=== PATIENT | male | born 1960 | race Caucasian/White ===

== ENCOUNTER 2021-06-17 08:51 | Emergency (ER) | payer BC ==
[2021-06-17] MEDS: Sodium Chloride 0.9% 10 ML Syringe FLUSH PRN (09:05)
[2021-06-17] MEDS: Nitroglycerin 0.4 MG Tab.SL SL PRN (09:21)
[2021-06-17 09:38] LABS: ANION GAP 13.9 mmol/L (5-15); CHLORIDE,CL 103 mmol/L (98-107); SODIUM,NA 140 mmol/L (136-145)
[2021-06-17] MEDS: Nitroglycerin 0.4 MG Tab.SL ONE (09:47)
--- NOTE | 2021-06-17 09:48 | EDM.PDOC ---
ED HPI GENERAL MEDICAL PROBLEM - General Chief Complaint: Chest Pain Stated Complaint: CHEST PAIN Time Seen by Provider: 06/17/21 09:26 Source of Information: Reports: Patient, Significant Other History Limitations: Reports: No Limitations - History of Present Illness INITIAL COMMENTS - FREE TEXT/NARRATIVE: Patient presents with retrosternal chest pain that started at 0730 this morning after he'd gotten up and made a cup of coffee; was sitting drinking it when it started. Mild left arm pain but no pain in neck or jaw. Symptoms are similar to pain he had with an GA about 10 years ago but with milder left arm pain today. He was found to have a plugged stent. He'd had stents placed prior to that. Treatments LIVING MANAGER: Reports: Aspirin, Nitroglycerin, Other Medication(s) Other Treatments LIVING MANAGER: tums Mid-Sternal Chest Pain Score (Numeric/FACES): 5 - Related Data Allergies Allergy/AdvReac Type Severity Reaction Status Date / Time Penicillins Allergy Cannot Verified 06/17/21 09:24 Remember Home Meds: Home Meds Aspirin [Aspirin EC] 162 mg PO DAILY 06/17/21 [History] Fluticasone Propionate [Flonase] 1 spray NASBOTH DAILY 06/17/21 [History] Ibuprofen [Advil] 600 - 800 mg PO ASDIRECTED PRN 06/17/21 [History] Metoprolol Succinate 50 mg PO DAILY 06/17/21 [History] Nitroglycerin 0.4 mg SL ASDIRECTED PRN 06/17/21 [History] Rosuvastatin Calcium 40 mg PO DAILY 06/17/21 [History] ED ROS GENERAL - Review of Systems Review Of Systems: Comprehensive ROS is negative, except as noted in HPI. ED EXAM, GENERAL - Physical Exam Exam: See Below Exam Limited By: No Limitations General Appearance: Alert, WD/WN, No Apparent Distress Eye Exam: Bilateral Eye: EOMI, Normal Inspection, PERRL Ears: Normal External Exam, Hearing Grossly Normal Nose: Normal Inspection, No Blood Throat/Mouth: Normal Inspection, Normal Lips, Normal Voice, No Airway Compromise Head: Atraumatic, Normocephalic Neck: Normal Inspection, Full Range of Motion Respiratory/Chest: No Respiratory Distress, Lungs Clear, Normal Breath Sounds Cardiovascular: Normal Peripheral Pulses, Regular Rate, Rhythm, No Murmur GI/Abdominal: Normal Bowel Sounds, Soft, Non-Tender, No Organomegaly Back Exam: Normal Inspection, Full Range of Motion Extremities: Normal Inspection, Normal Range of Motion Neurological: Alert, Oriented, Normal Cognition, No Motor/Sensory Deficits Psychiatric: Normal Affect, Normal Mood Skin Exam: Warm, Dry, Intact, Normal Color, No Rash Course - Vital Signs Last Recorded V/S: Last Vital Signs Temp 97.5 F 06/17/21 09:13 Pulse 81 06/17/21 10:08 Resp 21 H 06/17/21 09:13 BP 162/94 H 06/17/21 10:08 Pulse Ox 96 06/17/21 09:13 - Orders/Labs/Meds Orders: Active Orders 24 hr Category Date Time Status Cardiac Monitoring [RC] STAT Care 06/17/21 09:45 Ordered Peripheral IV Care [RC] . DIRECTED Care 06/17/21 09:18 Active PTT,PARTIAL THROMBOPLSTIN TIME [COAG] Stat Lab 06/17/21 09:59 Ordered Heparin Sodium/D5W 250 ml Med 06/17/21 10:00 Active IV TITRATE Nitroglycerin 25 MG in D5W @ 10 MCG/MIN (250ml) Premix Med 06/17/21 10:15 Ordered Nitroglycerin/D5W [Nitroglycerin 50 MG/D5W 250 ML] 50 mg in 250 ml IV TITRATE Nitroglycerin [Nitrostat] Med 06/17/21 09:18 Active 0.4 mg SL Q5M PRN Sodium Chloride 0.9% [Saline Flush] Med 06/17/21 09:17 Active 10 ml FLUSH Q8HR PRN Peripheral IV Insertion Adult [OM.PC] Routine Oth 06/17/21 09:17 Ordered EKG 12 Lead [EK] Stat Ther 06/17/21 09:17 Ordered Medication Orders Heparin Sodium/Dextrose () 250 mls @ 14.696 mls/hr IV TITRATE VANESSA; Protocol Last Admin: 06/17/21 09:55 Dose: 12 units/kg/hr, 14.696 mls/hr Documented by: ESTEFANIA Cosigned by: SHERRY Nitroglycerin/Dextrose (Nitroglycerin 50 Mg/D5w 250 Ml) 50 mg in 250 mls @ 3 mls/hr IV TITRATE VANESSA Last Admin: 06/17/21 10:16 Dose: 10 mcg/min, 3 mls/hr Documented by: ESTEFANIA Nitroglycerin (Nitroglycerin 0.4 Mg Tab.Sl) 0.4 mg SL Q5M PRN PRN Reason: Chest Pain Last Admin: 06/17/21 09:21 Dose: 0.4 mg Documented by: ESTEFANIA Sodium Chloride (Sodium Chloride 0.9% 10 Ml Syringe) 10 ml FLUSH Q8HR PRN PRN Reason: keep vein open Last Admin: 06/17/21 09:05 Dose: 10 ml Documented by: ESTEFANIA Labs: Laboratory Tests 06/17/21 06/17/21 Range/Units 09:05 09:05 WBC 9.65 (5.00-10.00) 10^3/uL RBC 5.24 (4.50-6.00) 10^6/uL Hgb 14.0 (13.0-17.0) g/dL Hct 42.7 (40.0-52.0) % MCV 81.5 L (82.0-92.0) fL MCH 26.7 L (27.0-31.0) pg MCHC 32.8 (32.0-36.0) g/dL RDW 14.0 (11.5-14.5) % Plt Count 236 (150-400) 10^3/uL MPV 10.1 (7.4-10.4) fL Immature Gran % (Auto) 0.3 (0.0-5.0) % Neut % (Auto) 74.6 H (50.0-70.0) % Lymph % (Auto) 13.3 L (20.0-40.0) % Morrison % (Auto) 9.1 H (2.0-8.0) % Eos % (Auto) 2.4 (1.0-3.0) % Baso % (Auto) 0.3 (0.0-1.0) % Neut # (Auto) 7.20 H (2.50-7.00) 10^3/uL Lymph # (Auto) 1.28 (1.00-4.00) 10^3/uL Morrison # (Auto) 0.88 H (0.10-0.80) 10^3/uL Eos # (Auto) 0.23 (0.10-0.30) 10^3/uL Baso # (Auto) 0.03 (0.00-0.10) 10^3/uL Immature Gran # (Auto) 0.03 (0.00-0.50) 10^3/uL Sodium 140 (136-145) mmol/L Potassium 4.0 (3.5-5.1) mmol/L Chloride 103 (98-107) mmol/L Carbon Dioxide 27.1 (21.0-32.0) mmol/L Anion Gap 13.9 (5-15) mmol/L BUN 16 (7-18) mg/dL Creatinine 0.90 (0.51-1.17) mg/dL Est Cr Clr Drug Dosing 90.12 mL/min Estimated GFR (MDRD) > 60 mL/min Glucose 127 (70-140) mg/dL Calcium 8.3 L (8.7-10.3) mg/dL Total Bilirubin 0.4 (0.2-1.0) mg/dL AST 30 (15-37) U/L ALT 29 (14-63) U/L Alkaline Phosphatase 81 (46-116) U/L Troponin I High Sens 870.700 H* (0-76.000) pg/mL Total Protein 7.1 (6.4-8.2) g/dL Albumin 2.80 L (3.40-5.00) g/dL Meds: Medications Generic Name Dose Route Start Last Admin Trade Name Freq PRN Reason Stop Dose Admin Heparin Sodium/Dextrose 250 mls @ 14.696 mls/hr 06/17/21 10:00 06/17/21 09:55 IV 12 units/kg/hr TITRATE VANESSA 14.696 mls/hr Administration Protocol 12 UNITS/KG/HR Nitroglycerin/Dextrose 50 mg in 250 mls @ 3 mls/hr 06/17/21 10:15 06/17/21 10:16 Nitroglycerin 50 Mg/D5w 250 Ml IV 10 mcg/min TITRATE VANESSA 3 mls/hr Administration 10 MCG/MIN Nitroglycerin 0.4 mg 06/17/21 09:18 06/17/21 09:21 Nitroglycerin 0.4 Mg Tab.Sl SL 0.4 mg Q5M PRN Administration Chest Pain Sodium Chloride 10 ml 06/17/21 09:17 06/17/21 09:05 Sodium Chloride 0.9% 10 Ml Syringe FLUSH 10 ml Q8HR PRN Administration keep vein open Discontinued Medications Generic Name Dose Route Start Last Admin Trade Name Alvaro PRN Reason Stop Dose Admin Clopidogrel Bisulfate 300 mg 06/17/21 09:59 06/17/21 10:08 Clopidogrel 75 Mg Tab PO 06/17/21 10:00 300 mg ONETIME ONE Administration Heparin Sodium (Porcine) 4,000 units 06/17/21 09:45 06/17/21 09:53 Heparin Sodium 5,000 Units/Ml Vial IVPUSH 06/17/21 09:46 4,000 units BOLUS ONE Administration Protocol Heparin Sodium (Porcine) Confirm 06/17/21 09:46 06/17/21 09:50 Heparin Sodium 5,000 Units/Ml Vial Administered 06/17/21 09:47 Not Given Dose 5,000 units .ROUTE .STK-MED ONE Heparin Sodium/Dextrose Confirm 06/17/21 09:46 06/17/21 09:50 Administered 06/17/21 09:47 Not Given Dose 250 mls @ as directed .ROUTE .STK-MED ONE Sodium Chloride Confirm 06/17/21 10:15 06/17/21 10:20 Normal Saline Administered 06/17/21 10:16 Not Given Dose 500 mls @ as directed .ROUTE .STK-MED ONE Metoprolol Tartrate 12.5 mg 06/17/21 10:02 06/17/21 10:08 Metoprolol Tartrate 25 Mg Tab PO 06/17/21 10:03 12.5 mg ONETIME ONE Administration Nitroglycerin Confirm 06/17/21 09:20 06/17/21 09:47 Nitroglycerin 0.4 Mg Tab.Sl Administered 06/17/21 09:21 Not Given Dose 0.4 mg .ROUTE .STK-MED ONE - Re-Assessments/Exams Free Text/Narrative Re-Assessment/Exam: 06/17/21 10:11 Chest pain on arrival was 8-9/10 and after our nitro has been around 5/10. Patient's knuckle strap sewer is in [facility]. CXR shows ST elevations in V1,V2 and depressions in II, III. The elevations are 1.5 mm. Troponin is 870. I discussed case with knuckle strap sewer Dr. Perera who wants heparin, plavix, metoprolol, nitro drip/paste; but wants hospitalist to accept, since not a true STEMI. Talked with Dr. Pacheco who accepted for transfer. Departure - Departure Time of Disposition: 10:08 Disposition: DC/Tfer to Acute Hospital 02 Reason for Transfer *Q: Primary PCI Indicated Condition: Good Clinical Impression: NSTEMI (non-ST elevated myocardial infarction), Elevated troponin Chest pain due to myocardial ischemia Qualifiers: Ischemic chest pain type: unstable angina pectoris Qualified Code(s): I20.0 - Unstable angina Referrals: Roselyn Soni NOODLE MAKER [Primary Care Provider] - Forms: ED Department Discharge Sepsis Event Note (ED) - Evaluation Sepsis Screening Result: No Definite Risk - Focused Exam Vital Signs: Vital Signs Temp Pulse Pulse Resp BP BP Pulse Ox 06/17/21 10:08 81 162/94 H 06/17/21 09:21 161/87 H 06/17/21 09:13 97.5 F 80 21 H 160/92 H 96 - My Orders Last 24 Hours: My Active Orders 06/17/21 09:17 Sodium Chloride 0.9% [Saline Flush] 10 ml FLUSH Q8HR PRN Peripheral IV Insertion Adult [OM.PC] Routine EKG 12 Lead [EK] Stat 06/17/21 09:18 Peripheral IV Care [RC] . DIRECTED Nitroglycerin [Nitrostat] 0.4 mg SL Q5M PRN 06/17/21 09:45 Cardiac Monitoring [RC] STAT 06/17/21 09:59 PTT,PARTIAL THROMBOPLSTIN TIME [COAG] Stat 06/17/21 10:00 Heparin Sodium/D5W 250 ml IV TITRATE 06/17/21 10:15 Nitroglycerin 25 MG in D5W @ 10 MCG/MIN (250ml) Premix Nitroglycerin/D5W [Nitroglycerin 50 MG/D5W 250 ML] 50 mg in 250 ml IV TITRATE - Assessment/Plan Last 24 Hours: My Active Orders 06/17/21 09:17 Sodium Chloride 0.9% [Saline Flush] 10 ml FLUSH Q8HR PRN Peripheral IV Insertion Adult [OM.PC] Routine EKG 12 Lead [EK] Stat 06/17/21 09:18 Peripheral IV Care [RC] . DIRECTED Nitroglycerin [Nitrostat] 0.4 mg SL Q5M PRN 06/17/21 09:45 Cardiac Monitoring [RC] STAT 06/17/21 09:59 PTT,PARTIAL THROMBOPLSTIN TIME [COAG] Stat 06/17/21 10:00 Heparin Sodium/D5W 250 ml IV TITRATE 06/17/21 10:15 Nitroglycerin 25 MG in D5W @ 10 MCG/MIN (250ml) Premix Nitroglycerin/D5W [Nitroglycerin 50 MG/D5W 250 ML] 50 mg in 250 ml IV TITRATE
[2021-06-17] MEDS: Heparin Sodium 5,000 Units/ML Vial ONE (09:50)
[2021-06-17] MEDS: Heparin Sodium/D5W 250 ML ONE (09:50)
[2021-06-17] MEDS: Heparin Sodium 5,000 Units/ML Vial IVPUSH ONE (09:53)
[2021-06-17] MEDS: Heparin Sodium/D5W 250 ML IV SCH (09:55)
--- NOTE | 2021-06-17 10:03 | CR ---
[id number] RAD/RAD Chest PA or AP 1V EXAM: RAD Chest PA or AP 1V INDICATION: CHEST PAIN. COMPARISON: 2009. DISCUSSION/IMPRESSION: Cardiomediastinal silhouette is normal in size and contour. Lungs are clear. No pleural effusion or pneumothorax. Don Owens MD 06/17/21 1002 Thank you for allowing us to participate in the care of your patient.
[2021-06-17] MEDS: Metoprolol Tartrate 25 MG Tab PO ONE (10:08)
[2021-06-17] MEDS: Clopidogrel 75 MG Tab PO ONE (10:08)
[2021-06-17] MEDS: Sodium Chloride 0.9% 500 ML ONE (10:20)
== END 2021-06-17 10:30 ==
LOC: KA.ED 08:51
DX: I20.0 Unstable angina (principal); I21.4 Non-ST elevation (NSTEMI) myocardial infarction; R79.89 Other specified abnormal findings of blood chemistry; Z88.0 Allergy status to penicillin; Z79.82 Long term (current) use of aspirin; Z79.899 Other long term (current) drug therapy
CPT/HCPCS: 36415; 71045; 80053; 84484; 85025; 85730; 93005; 96365; 96375; 99284; 99285-25; A9270-GY; J1644